=== PATIENT | male | born 1995 | race Caucasian/White ===

== ENCOUNTER 2017-11-02 16:28 | Inpatient (IN) | payer OTHER ==
[2017-11-02] MEDS ORDERED: DOCUSATE SODIUM 100 MG CAP PO (18:30)
[2017-11-02] MEDS ORDERED: ONDANSETRON 4 MG INJ IV (18:30)
[2017-11-02] MEDS ORDERED: ACETAMINOPHEN 325 MG TAB PO (18:30)
[2017-11-02 19:10] LABS: ADD UMIC YES; UR ASCORBIC ACID NEGATIVE (NEGATIVE); UR BACTERIA FEW /HPF (NONE SEEN); UR BILIRUBIN (Dip) NEGATIVE (NEGATIVE); UR BLOOD (Dip) 3+ mg/dL (NEGATIVE); UR CLARITY CLOUDY (CLEAR); UR COLOR RED (YELLOW); UR GLUCOSE (Dip) 1+ mg/dL (NEGATIVE); UR KETONES (Dip) 1+ mg/dL (NEGATIVE); UR LEUKOCYTE ESTERASE (Dip) 2+ Leu/ul (NEGATIVE); UR NITRITE (Dip) NEGATIVE (NEGATIVE); UR RBC > 182 /HPF (0-5); UR SPECIFIC GRAVITY (Dip) 1.018 (1.003-1.030); UR TOTAL PROTEIN (Dip) 2+ mg/dl (NEGATIVE); UR UROBILINOGEN (Dip) NEGATIVE (NEGATIVE); UR WBC > 182 /HPF (0-5)
[2017-11-02] MEDS: SOD CHLORIDE 0.9% 1,000 ML IV (19:50)
[2017-11-02] MEDS: MESALAMINE (EC) 400 MG CAP PO (21:20)
[2017-11-02] MEDS: TAMSULOSIN (SR) 0.4 MG CAP PO (21:20)
[2017-11-02 22:30] LABS: ADD MAN DIFF? NO
[2017-11-02 22:31] LABS: WHITE BLOOD COUNT 10.1 10^3/ul (4.8-10.8)
[2017-11-02 22:31] LABS: BASOPHIL # 0.1 10^3/ul (0.0-0.1); BASOPHILS % 0.6 % (0.0-2.0); EOSINOPHILS # 0.3 10^3/ul (0.0-0.5); EOSINOPHILS % 3.3 % (0.0-7.0); HEMATOCRIT 41.9 % (42.0-52.0); HEMOGLOBIN 14.1 g/dl (14.0-18.0); LYMPHOCYTES # 3.3 10^3/ul (0.8-2.9); LYMPHOCYTES % 32.7 % (15.0-51.0); MEAN CORPUSCULAR HGB CONC 33.7 g/dl (32.0-37.0); MEAN CORPUSCULAR VOLUME 92.1 fl (82.0-101.0); MEAN PLATELET VOLUME 11.2 fl (7.4-10.4); MONOCYTE # 0.9 10^3/ul (0.3-0.9); NEUTROPHIL # 5.5 10^3/ul (1.6-7.5); NEUTROPHILS % 54.2 % (39.0-77.0); PLATELET COUNT 239 10^3/UL (140-415); RED BLOOD COUNT 4.55 10^6/ul (4.70-6.10); RED CELL DISTRIBUTION WIDTH 12.8 % (11.5-14.5)
[2017-11-02 22:48] LABS: ALANINE AMINOTRANSFERASE 26 IU/L (13-69); ALBUMIN 3.8 g/dl (3.3-4.9); ALBUMIN/GLOBULIN RATIO 1.26; ALKALINE PHOSPHATASE 58 IU/L (42-121); ANION GAP 11 (8-16); ASPARTATE AMINO TRANSFERASE 24 IU/L (15-46); BILIRUBIN,INDIRECT 0.3 mg/dl (0-1.1); BILIRUBIN,TOTAL 0.3 mg/dl (0.2-1.3); BLOOD UREA NITROGEN 11 mg/dl (7-20); CALCIUM 9.1 mg/dl (8.4-10.2); CARBON DIOXIDE 27 mmol/L (21-31); CHLORIDE 107 mmol/L (97-110); CREATININE 0.76 mg/dl (0.61-1.24); GLUCOSE 95 mg/dl (70-220); POTASSIUM 3.6 mmol/L (3.5-5.1); SODIUM 141 mmol/L (135-144); TOTAL PROTEIN 6.8 g/dl (6.1-8.1)
[2017-11-02 22:51] LABS: INR 0.97
[2017-11-02 22:52] LABS: PARTIAL THROMBOPLASTIN TIME 33.5 Sec (25.0-35.0)
[2017-11-03] MEDS: PANTOPRAZOLE 40 MG INJ IV (05:36)
[2017-11-03 06:24] LABS: ADD MAN DIFF? NO
[2017-11-03 06:29] LABS: WHITE BLOOD COUNT 7.6 10^3/ul (4.8-10.8)
[2017-11-03 06:29] LABS: BASOPHIL # 0.1 10^3/ul (0.0-0.1); EOSINOPHILS # 0.4 10^3/ul (0.0-0.5); EOSINOPHILS % 5.4 % (0.0-7.0); HEMATOCRIT 40.4 % (42.0-52.0); HEMOGLOBIN 13.8 g/dl (14.0-18.0); LYMPHOCYTES # 2.3 10^3/ul (0.8-2.9); LYMPHOCYTES % 30.4 % (15.0-51.0); MEAN CORPUSCULAR HEMOGLOBIN 31.6 pg (29.0-33.0); MEAN CORPUSCULAR HGB CONC 34.2 g/dl (32.0-37.0); MEAN CORPUSCULAR VOLUME 92.4 fl (82.0-101.0); MEAN PLATELET VOLUME 11.4 fl (7.4-10.4); MONOCYTE # 0.8 10^3/ul (0.3-0.9); MONOCYTES % 9.9 % (0.0-11.0); NEUTROPHILS % 52.9 % (39.0-77.0); PLATELET COUNT 228 10^3/UL (140-415); RED BLOOD COUNT 4.37 10^6/ul (4.70-6.10); RED CELL DISTRIBUTION WIDTH 12.7 % (11.5-14.5)
[2017-11-03] MEDS: SOD CHLORIDE 0.9% 1,000 ML IV ×2 (06:51→15:00)
[2017-11-03 06:53] LABS: ANION GAP 9 (8-16); BLOOD UREA NITROGEN 10 mg/dl (7-20); CARBON DIOXIDE 25 mmol/L (21-31); CHLORIDE 107 mmol/L (97-110); CREATININE 0.78 mg/dl (0.61-1.24); GLUCOSE 97 mg/dl (70-220); POTASSIUM 3.4 mmol/L (3.5-5.1); SODIUM 138 mmol/L (135-144)
[2017-11-03] MEDS: MESALAMINE (EC) 400 MG CAP PO ×3 (10:06→21:11)
[2017-11-03] MEDS: CEFTRIAXONE 1 GM/50 ML (PMX) 50 ML IVPB (10:06)
[2017-11-03] MEDS: POTASSIUM CHLORIDE (SR) 20 MEQ TAB PO (15:00)
[2017-11-03] MEDS: HYDROCODONE/APAP (5/325) TAB PO (16:09)
[2017-11-03] MEDS: morphine 2 MG INJ IV ×2 (17:12→22:27)
[2017-11-03] MEDS: TAMSULOSIN (SR) 0.4 MG CAP PO (21:11)
[2017-11-04] MEDS: SOD CHLORIDE 0.9% 1,000 ML IV ×3 (01:30→14:48)
[2017-11-04] MEDS: morphine 2 MG INJ IV ×2 (03:03→13:07)
[2017-11-04] MEDS: PANTOPRAZOLE 40 MG INJ IV (05:39)
[2017-11-04 07:15] LABS: ADD MAN DIFF? NO
[2017-11-04 07:23] LABS: WHITE BLOOD COUNT 7.8 10^3/ul (4.8-10.8)
[2017-11-04 07:23] LABS: BASOPHIL # 0.1 10^3/ul (0.0-0.1); BASOPHILS % 0.8 % (0.0-2.0); EOSINOPHILS # 0.4 10^3/ul (0.0-0.5); EOSINOPHILS % 4.7 % (0.0-7.0); HEMATOCRIT 41.1 % (42.0-52.0); HEMOGLOBIN 13.9 g/dl (14.0-18.0); LYMPHOCYTES % 38.8 % (15.0-51.0); MEAN CORPUSCULAR HEMOGLOBIN 31.4 pg (29.0-33.0); MEAN CORPUSCULAR HGB CONC 33.8 g/dl (32.0-37.0); MEAN PLATELET VOLUME 11.4 fl (7.4-10.4); MONOCYTE # 0.7 10^3/ul (0.3-0.9); MONOCYTES % 9.5 % (0.0-11.0); NEUTROPHIL # 3.6 10^3/ul (1.6-7.5); NEUTROPHILS % 45.9 % (39.0-77.0); PLATELET COUNT 222 10^3/UL (140-415); RED BLOOD COUNT 4.42 10^6/ul (4.70-6.10); RED CELL DISTRIBUTION WIDTH 12.6 % (11.5-14.5)
[2017-11-04 07:50] LABS: ANION GAP 10 (8-16); BLOOD UREA NITROGEN 6 mg/dl (7-20); CARBON DIOXIDE 25 mmol/L (21-31); CHLORIDE 107 mmol/L (97-110); CREATININE 0.68 mg/dl (0.61-1.24); GLUCOSE 89 mg/dl (70-220); POTASSIUM 3.5 mmol/L (3.5-5.1); SODIUM 138 mmol/L (135-144)
[2017-11-04] MEDS: CEFTRIAXONE 1 GM/50 ML (PMX) 50 ML IVPB (09:18)
[2017-11-04] MEDS: MESALAMINE (EC) 400 MG CAP PO ×3 (09:18→22:06)
[2017-11-04] MEDS ORDERED: ROCURONIUM 50 MG INJ (17:50)
[2017-11-04] MEDS ORDERED: CEFAZOLIN 1 GM INJ (17:50)
[2017-11-04] MEDS ORDERED: NEOSTIGMINE 3 MG/3 ML SYRINGE (17:50)
[2017-11-04] MEDS ORDERED: GLYCOPYRROLATE 0.4 MG INJ (17:50)
[2017-11-04] MEDS ORDERED: PROPOFOL 20 ML (17:50)
[2017-11-04] MEDS ORDERED: ONDANSETRON 4 MG INJ (17:52)
[2017-11-04] MEDS ORDERED: DEXAMETHASONE 4 MG/ML 1 ML INJ (17:52)
[2017-11-04] MEDS ORDERED: MIDAZOLAM 1 MG/ML 2 ML INJ (17:52)
[2017-11-04] MEDS ORDERED: FENTAnyl 50 MCG/ML VIAL ×2 (17:52→19:01)
[2017-11-04] MEDS ORDERED: IPRATROPIUM (NEB) 0.5 MG/2.5 ML AMP HHN (18:30)
[2017-11-04] MEDS ORDERED: ALBUTEROL 0.083% (NEB) 2.5 MG/3 ML AMP HHN (18:30)
[2017-11-04] MEDS ORDERED: hydrALAzine 20 MG INJ IV (18:30)
[2017-11-04] MEDS ORDERED: ONDANSETRON 4 MG INJ IV (18:30)
[2017-11-04] MEDS ORDERED: LABETALOL HCL 20MG INJ IV (18:30)
[2017-11-04] MEDS ORDERED: TRIMETHOBENZAMIDE 100 MG/ML VIAL IM (18:30)
[2017-11-04] MEDS ORDERED: HYDROmorphONE 1 MG/5 ML IV SYRINGE IV (18:30)
[2017-11-04] MEDS ORDERED: FENTAnyl 50 MCG/ML VIAL IV ×3 (18:30)
[2017-11-04] MEDS ORDERED: MEPERIDINE 25 MG INJ IV (18:30)
[2017-11-04] MEDS ORDERED: OXYCODONE/ACETAMINOPHEN (5/325) TAB PO (18:30)
[2017-11-04] MEDS ORDERED: EPHEDrine SULFATE 50 MG/5 ML SYG IV (18:30)
[2017-11-04] MEDS ORDERED: SUGAMMADEX SODIUM 200 MG/2 ML VIAL IV (19:18)
[2017-11-04] MEDS: HYDROmorphONE 1 MG/5 ML IV SYRINGE IV ×3 (20:07→20:25)
[2017-11-04] MEDS: OXYCODONE/ACETAMINOPHEN (5/325) TAB PO ×2 (20:11→20:19)
[2017-11-04] MEDS: DIPHENHYDRAMINE 50 MG INJ IV (20:25)
[2017-11-04] MEDS ORDERED: BELLADONNA ALK/OPIUM SUPP PR (20:30)
[2017-11-04] MEDS: MIDAZOLAM 1 MG/ML 2 ML INJ IV (20:32)
[2017-11-04] MEDS: BELLADONNA ALK/OPIUM SUPP PR (20:45)
[2017-11-04] MEDS: TAMSULOSIN (SR) 0.4 MG CAP PO (22:06)
[2017-11-05] MEDS: morphine 2 MG INJ IV ×2 (02:24→11:38)
[2017-11-05] MEDS: SOD CHLORIDE 0.9% 1,000 ML IV ×2 (04:51→16:25)
[2017-11-05] MEDS: PANTOPRAZOLE 40 MG INJ IV (05:34)
[2017-11-05 05:46] LABS: ADD MAN DIFF? NO
[2017-11-05 05:49] LABS: WHITE BLOOD COUNT 5.7 10^3/ul (4.8-10.8)
[2017-11-05 05:49] LABS: HEMATOCRIT 41.2 % (42.0-52.0); HEMOGLOBIN 14.2 g/dl (14.0-18.0); LYMPHOCYTES # 0.7 10^3/ul (0.8-2.9); LYMPHOCYTES % 12.6 % (15.0-51.0); MEAN CORPUSCULAR HEMOGLOBIN 31.5 pg (29.0-33.0); MEAN CORPUSCULAR HGB CONC 34.5 g/dl (32.0-37.0); MEAN CORPUSCULAR VOLUME 91.4 fl (82.0-101.0); MEAN PLATELET VOLUME 11.8 fl (7.4-10.4); MONOCYTE # 0.1 10^3/ul (0.3-0.9); MONOCYTES % 1.9 % (0.0-11.0); NEUTROPHIL # 4.9 10^3/ul (1.6-7.5); PLATELET COUNT 236 10^3/UL (140-415); RED BLOOD COUNT 4.51 10^6/ul (4.70-6.10); RED CELL DISTRIBUTION WIDTH 12.2 % (11.5-14.5)
[2017-11-05 06:16] LABS: ANION GAP 13 (8-16); BLOOD UREA NITROGEN 7 mg/dl (7-20); CALCIUM 9.8 mg/dl (8.4-10.2); CARBON DIOXIDE 23 mmol/L (21-31); CHLORIDE 105 mmol/L (97-110); CREATININE 0.68 mg/dl (0.61-1.24); GLUCOSE 135 mg/dl (70-220); POTASSIUM 4.3 mmol/L (3.5-5.1); SODIUM 137 mmol/L (135-144)
[2017-11-05 06:20] LABS: PHOSPHORUS 3.7 mg/dl (2.5-4.9)
[2017-11-05 06:20] LABS: MAGNESIUM 1.9 mg/dl (1.7-2.5)
[2017-11-05] MEDS: MESALAMINE (EC) 400 MG CAP PO ×2 (09:09→12:23)
[2017-11-05] MEDS: CEFTRIAXONE 1 GM/50 ML (PMX) 50 ML IVPB (09:09)
== END 2017-11-05 18:07 | disposition home or self-care (01) | DRG 669 ==
LOC: PP2 16:28
PROC: 0TC78ZZ Extirpation of Matter from Left Ureter, Via Natural or Artificial Opening Endoscopic (ICD-10-PCS; principal; 2017-11-04 17:30)
PROC: 0T778DZ Dilation of Left Ureter with Intraluminal Device, Via Natural or Artificial Opening Endoscopic (ICD-10-PCS; 2017-11-04 17:30)
PROC: 0TP98DZ Removal of Intraluminal Device from Ureter, Via Natural or Artificial Opening Endoscopic (ICD-10-PCS; 2017-11-04 17:30)
DX: N20.1 Calculus of ureter (principal); N39.0 Urinary tract infection, site not specified; K51.90 Ulcerative colitis, unspecified, without complications; Z87.442 Personal history of urinary calculi
CPT/HCPCS: 71045; 74018; 74176; 74430; 80048; 80053; 81001; 83735; 84100; 85025; 85610; 85730; 87081; 87086; 88300